=== PATIENT | male | born 1985 ===

== ENCOUNTER 2016-12-14 13:57 | Emergency (ER) | payer OTHER ==
--- NOTE | 2016-12-14 14:13 | ED Physician Documentation ---
General Adult - HISTORIAN Historian: patient - HPI Stated Complaint: sore throat body aches Chief Complaint: Sore Throat Onset: hours (12 hours) Timing: still present Severity: moderate Modifying Factors: worse with swallowing Quality: achy, burning Location: pharynx Further Comments: yes (Patient woke up this AM with sore thorat hat has not gotten any better . Has been working outside not sure if he has been running a fever or not. Did get lightheaded today while at work today. Spouse with similar symptoms.) - ROS CONST: fever, weakness EYES/ENT: none CVS/RESP: cough (to yellow) GI/: denies: vomiting, nausea, diarrhea NEURO/PSYCH: denies: headache, fainting - PAST HX Past History: none Other History: none Surgeries/Procedures: none Allergies/Adverse Reactions: Allergies Allergy/AdvReac Type Severity Reaction Status Date / Time No Known Allergies Allergy Unverified 12/14/16 14:10 Home Medications: Ambulatory Orders Medication Instructions Recorded Amoxicillin [Trimox] 500 mg PO TID #30 capsule 12/14/16 - SOCIAL HX Smoking History: less than 1 pack/day (3/4 ppd) Alcohol Use: occasionally Drug Use: none - FAMILY HX Family History: No - VITAL SIGNS Vital Signs: Vital Signs Temp Pulse Resp BP Pulse Ox 99.9 F H 105 H 14 92/55 97 12/14/16 14:08 12/14/16 14:08 12/14/16 14:08 12/14/16 14:08 12/14/16 14:08 - REVIEWED ASSESSMENTS Nursing Assessment Reviewed: Yes Vitals Reviewed: Yes General Adult Physical Exam - PHYSICAL EXAM GENERAL APPEARANCE: mild distress EENT: no signs of dehydration, pharyngeal erythema. No: exudate NECK: normal inspection, thyroid normal, supple, lymphadenopathy (mild anterior) RESPIRATORY: no resp distress, chest non-tender, breath sounds normal. No: wheezes, rales, rhonchi CVS: reg rate & rhythm, heart sounds normal, equal pulses, no murmur ABDOMEN: soft, no organomegaly SKIN: warm/dry, normal color NEURO: cognition normal, disoriented Discharge Clincal Impression: Pharyngitis Qualifiers: Pharyngitis/tonsillitis etiology: streptococcus Qualified Code(s): J02.0 - Streptococcal pharyngitis Prescriptions: Amoxicillin [Trimox] 500 mg PO TID #30 capsule Referrals: Primary Doctor,No [Primary Care Provider] - 2 Days Additional Instructions: Drink a lot of fluids to stay well hydrated. Take all of the antibiotics until gone. If you have any problems to call my office or return tot he ED. Home Medications: Ambulatory Orders Amoxicillin [Trimox] 500 mg PO TID #30 capsule 12/14/16 Condition: Stable Disposition: 01 HOME, SELF-CARE Decision to Admit: NO Date of Decison to Admit: 12/14/16 Decision Time: 14:28
[2016-12-14 14:37] VITALS: BP 102/60
== END 2016-12-14 14:35 | disposition home or self-care (01) ==
LOC: ED 13:57
DX: J02.0 Streptococcal pharyngitis (principal)
CPT/HCPCS: 87880; 99283